=== PATIENT | male | born 1995 | race Two or more races ===

== ENCOUNTER 2024-05-02 13:25 | Inpatient (IN) | payer MEDICAID, OTHER ==
[~2024-05-02] VITALS: Ht 172.7 cm; Wt 127.0 kg
[2024-05-02 13:53] VITALS: PULSE 77; RESP 20; O2SAT 95
[2024-05-02] MEDS: MORPHINE SULFATE 4 MG/ML SYR/VIAL IV ONE (14:14)
[2024-05-02] MEDS: ONDANSETRON HCL 4 MG/2 ML VIAL IV ONE (14:14)
[2024-05-02] MEDS: SODIUM CHLORIDE 0.9% 1,000 ML IV ONE (14:14)
[2024-05-02] MEDS: PANTOPRAZOLE 40 MG/10 ML VIAL INJ IV ONE (14:14)
[2024-05-02 14:15] LABS: Basophils # (auto) 0 10 ^3/uL (0-0.2); Basophils % (auto) 0.5 % (0.0-2.0); Eosinophils # (auto) 0.1 10 ^3/uL (0-0.8); Hematocrit 48.7 % (41.0-53.0); Hemoglobin 16.3 g/dL (13.5-17.5); Lymphocytes # (auto) 1.4 10 ^3/uL (0.4-5.4); Lymphocytes % (auto) 24.2 % (10.0-50.0); Mean Corpuscular Hemoglobin 30.3 pg (28.0-32.0); Mean Corpuscular Hgb Conc. 33.4 g/dL (32.0-36.0); Mean Corpuscular Volume 90.8 fL (80.0-100.0); Monocytes # (auto) 0.7 10 ^3/uL (0-1.3); Monocytes % (auto) 12.9 % (0.0-12.0); Neutrophils # (auto) 3.5 10 ^3/uL (1.6-8.6); Neutrophils % (auto) 60.4 % (37.0-80.0); Nucleated Red Blood Cells % 0.1 %; Platelet Count (auto) 192 10^3/uL (140-450); Red Blood Cells 5.37 10^6/uL (4.5-5.90); Red Cell Distribution Width 13.1 % (11.8-14.3); White Blood Cell 5.8 10^3/uL (4.4-10.8)
[2024-05-02 14:16] LABS: Albumin 4.8 g/dL (3.2-4.8); Alkaline Phosphatase 103 U/L (46-116); Anion Gap 13 (5-15); Aspartate Aminotransferase 32 U/L (13-40); BUN/Creatinine Ratio 12.4 (10.0-20.0); Bilirubin, Total 0.5 mg/dL (0.2-1.0); Blood Urea Nitrogen 11 mg/dL (9-23); Calcium 9.8 mg/dL (8.7-10.4); Chloride 106 mmol/L (98-107); Potassium 3.5 mmol/L (3.5-5.1); Total Protein 7.9 g/dL (5.7-8.2)
[2024-05-02 14:27] LABS: Alanine Aminotransferase 53 U/L (7-40); Carbon Dioxide 17 mmol/L (20-31); Glucose 174 mg/dL (74-106); Sodium 136 mmol/L (136-145)
--- NOTE | 2024-05-02 14:27 | DVH ---
CT ABDOMEN AND PELVIS WITHOUT CONTRAST CLINICAL HISTORY: L abd pain TECHNIQUE: Multiple contiguous axial images of the abdomen and pelvis without intravenous contrast. T he images were reformatted degenerate coronal and sagittal reconstructions. All CT scans at this medical facility are performed using dose modulation techniques as appropriate t o a performed exam including the following:Automated exposure control was utilized; adjustment of the MA and/or KV according to patient size; and use of iterative reconstruction technique. Radiation Dose Information: CT Dose: CTDI volume is 25.55 mGy. Dose-length product is 1452.99 mGy*cm Comparison: None FINDINGS: Evaluation of the abdomen and pelvis is limited without intravenous contrast. There is diffuse fatty infiltration of the liver. There is a 6 mm calcified gallstone in the gallblad genny neck.. The pancreas, kidneys, adrenal glands, and spleen appear within normal limits. There is no gross evidence of abdominal lymphadenopathy. There is no free fluid or free air. The stomach grossly appears unremarkable. The small and large bowel loops demonstrate normal caliber and appear within normal limits.. A normal appearing appendix is seen in the right lower quadrant a bdomen. The abdominal aorta and IVC appear within normal limits. The bladder appears unremarkable for the degree of distention. Pelvic organ appears within normal carroll its. There is no gross evidence of a pelvic mass. There is no free fluid collection. Lung bases are clear. There is no acute osseous abnormality. IMPRESSION: 1. There is no acute process in the abdomen and pelvis. 2. Hepatic steatosis. 3. 6 mm calcified gallstone in the gallbladder neck. HS:Y
--- NOTE | 2024-05-02 16:29 | ED.PDOC ---
GI ASSESSMENT HPI Comments 29-year-old male with a history of PUD brought in by family for evaluation of left upper quadrant pain radiating to the epigastrium and right upper quadrant, intermittently for the past year, worse since this morning. Patient states he was seen by GI in June of 2023, underwent EGD and biopsy. He was told he had holes in his stomach, was prescribed 14 day course of pantoprazole which did not improve the symptoms at all. This episode he states is severe, sharp, constant, no particular alleviating factors, worse with palpation of his abdomen. He denies any fever, vomiting, diarrhea or dysuria. He has had some constipation. Chief Complaint: Abdominal Pain Time Seen by MD: 13:44 Allergies: Coded Allergies: NO KNOWN ALLERGIES (Unverified , 05/02/24) Mode of Arrival: EMS Past Medical History Past Medical History (Other): PUD Surgical History (Other): EGD Family History Family History: Reviewed,noncontributory to illness Social History Smoker: Non-Smoker Alcohol: Denies ETOH Use Drugs: Marijuana Lives In: Home All Other Systems: Reviewed and Negative (Comprehensive systems review obtained and negative except for what is stated in the HPI.) Physical Exam General Appearance: Moderate Distress, Obese HEENT: PERRL/EOMI Neck: Full Range of Motion, Normal Inspection Respiratory: Lungs Clear, No Accessory Muscle Use, No Respiratory Distress, Normal Breath Sounds Cardiovascular: No Edema, No JVD, Regular Rate/Rhythm Breast Exam: Deferred Gastrointestinal: Epigastric, LUQ, RUQ, Soft, Tenderness Genitalia: Deferred Pelvic: Deferred Rectal: Deferred Extremities: Normal inspection, Normal range of motion, Non-tender, No pedal edema Neurologic: Alert (Oriented x4), Normal Affect, Normal Mood, Other (Ambulatory. No gross focal deficit.) Cerebellar Function: NOT DONE Reflexes: NOT DONE Skin: Dry, Normal Color, Warm Lymphatic: NOT DONE Was a procedure done? Was a procedure done?: No GI differential Dx Differential Diagnosis: Bowel Obstruction, Cholangitis, Cholecystitis, Constipation, Diverticular disease, Esophagitis, Gastritis/PUD, Gastroenteritis, Inflammatory BD, Ischemic Bowel, Pancreatitis, UTI, Dehydration, Diabetes/ DKA, Electrolyte Imbalance, Food Poisoning, Bacterial, Viral, Stress Ulcer X-Ray, Labs, Meds, VS Vital Signs Date Time Temp Pulse Resp B/P (MAP) Pulse Ox O2 Delivery O2 Flow Rate FiO2 05/02/24 16:41 79 17 136/78 05/02/24 14:14 77 20 149/82 05/02/24 13:53 98.0 77 20 149/82 (104) 95 98.0 05/02/24 13:53 77 20 95 Room Air* 0 21 05/02/24 13:48 97.9 89 20 145/90 (108) 98 Lab Test 05/02/24 13:48 Range/Units White Blood Count 5.8 4.4-10.8 10^3/uL Red Blood Count 5.37 4.5-5.90 10^6/uL Hemoglobin 16.3 13.5-17.5 g/dL Hematocrit 48.7 41.0-53.0 % Mean Corpuscular Volume 90.8 80.0-100.0 fL Mean Corpuscular Hemoglobin 30.3 28.0-32.0 pg Mean Corpuscular Hemoglobin Concent 33.4 32.0-36.0 g/dL Red Cell Distribution Width 13.1 11.8-14.3 % Platelet Count 192 140-450 10^3/uL Mean Platelet Volume 8.6 6.9-10.8 fL Neutrophils (%) (Auto) 60.4 37.0-80.0 % Lymphocytes (%) (Auto) 24.2 10.0-50.0 % Monocytes (%) (Auto) 12.9 H 0.0-12.0 % Eosinophils (%) (Auto) 2.0 0.0-7.0 % Basophils (%) (Auto) 0.5 0.0-2.0 % Neutrophils # (Auto) 3.5 1.6-8.6 10 ^3/uL Lymphocytes # (Auto) 1.4 0.4-5.4 10 ^3/uL Monocytes # (Auto) 0.7 0-1.3 10 ^3/uL Eosinophils # (Auto) 0.1 0-0.8 10 ^3/uL Basophils # (Auto) 0 0-0.2 10 ^3/uL Nucleated Red Blood Cells 0.1 % Sodium Level 136 136-145 mmol/L Potassium Level 3.5 3.5-5.1 mmol/L Chloride Level 106 98-107 mmol/L Carbon Dioxide Level 17 L 20-31 mmol/L Anion Gap 13 5-15 Blood Urea Nitrogen 11 9-23 mg/dL Creatinine 0.89 0.700-1.30 mg/dL Glomerular Filtration Rate Calc 120 >90 mL/min BUN/Creatinine Ratio 12.4 10.0-20.0 Serum Glucose 174 H 74-106 mg/dL Calcium Level 9.8 8.7-10.4 mg/dL Total Bilirubin 0.5 0.2-1.0 mg/dL Aspartate Amino Transferase (AST) 32 13-40 U/L Alanine Aminotransferase (ALT) 53 H 7-40 U/L Alkaline Phosphatase 103 46-116 U/L Total Protein 7.9 5.7-8.2 g/dL Albumin 4.8 3.2-4.8 g/dL Lipase 41 12-53 U/L Current Medications Medications (Trade) Dose Ordered Sig/Suzanne Route Start Time Stop Time Status Last Admin Sodium Chloride 1,000 ml @ 1,000 mls/hr Q1H ONCE IV 05/02/24 14:00 05/02/24 14:59 DC 05/02/24 14:14 Ondansetron HCl (Zofran) 4 mg ONCE ONCE IV 05/02/24 14:00 05/02/24 14:01 DC 05/02/24 14:14 Morphine Sulfate 4 mg ONCE ONCE IV 05/02/24 14:00 05/02/24 14:01 DC 05/02/24 14:14 Pantoprazole Sodium (Protonix) 40 mg ONCE ONCE IV 05/02/24 14:00 05/02/24 14:01 DC 05/02/24 14:14 PROCEDURE(s): ABPL - CT AB PEL WO CON-NO ORAL OR IV REASON: L abd pain ORDER NUMBER(s): [id number], ACCESSION NUMBER(s): [id number] CT ABDOMEN AND PELVIS WITHOUT CONTRAST CLINICAL HISTORY: L abd pain TECHNIQUE: Multiple contiguous axial images of the abdomen and pelvis without intravenous contrast. The images were reformatted degenerate coronal and sagittal reconstructions. All CT scans at this medical facility are performed using dose modulation techniques as appropriate to a performed exam including the following:Automated exposure control was utilized; adjustment of the MA and/or KV according to patient size; and use of iterative reconstruction technique. Radiation Dose Information: CT Dose: CTDI volume is 25.55 mGy. Dose-length product is 1452.99 mGy*cm Comparison: None FINDINGS: Evaluation of the abdomen and pelvis is limited without intravenous contrast. There is diffuse fatty infiltration of the liver. There is a 6 mm calcified gallstone in the gallbladder neck.. The pancreas, kidneys, adrenal glands, and spleen appear within normal limits. There is no gross evidence of abdominal lymphadenopathy. There is no free fluid or free air. The stomach grossly appears unremarkable. The small and large bowel loops demonstrate normal caliber and appear within normal limits.. A normal appearing appendix is seen in the right lower quadrant abdomen. The abdominal aorta and IVC appear within normal limits. The bladder appears unremarkable for the degree of distention. Pelvic organ appears within normal limits. There is no gross evidence of a pelvic mass. There is no free fluid collection. Lung bases are clear. There is no acute osseous abnormality. IMPRESSION: 1. There is no acute process in the abdomen and pelvis. 2. Hepatic steatosis. 3. 6 mm calcified gallstone in the gallbladder neck. [place] [address] Ph: [phone] DIAGNOSTIC IMAGING Diagnostic Imaging Report : [id number] Signed PATIENT: JUAN DIA ACCT: [id number] UNIT: [id number] : 1995 LOC: OVERFLOW ROOM / BED: [address] [place] [address] / A AGE / SEX: 29 / M ADM STATUS: ADM IN SERVICE [id number] ORDERING PHYSICIAN: KEVIN PABLO MD PROCEDURE(s): ABDL - ABDOMEN LIMITED REASON: assess for acute cholecystitis ORDER NUMBER(s): [id number], ACCESSION NUMBER(s): [id number] INDICATION: assess for acute cholecystitis TECHNIQUE: Multiple real-time sonographic images were obtained of the right upper quadrant. COMPARISON: Prior CT examination of today's date FINDINGS: 1. Prior CT examination 2. demonstrates fatty infiltrated 3. liver 4. there is a stone 5. in the distal 6. common bile duct 7. and 8. liver 9. is enlarged 10. at 11. 21 cm 12. in span. 13. In the 14. prior CT 15. examination the stone in the common bile 16. duct measures 17. 5 mm 18. in size 19. . 20. In the current study 21. liver is 22. echogenic 23. and heterogeneous suggesting fatty infiltration 24. measures 25. 19.2 cm 26. in span which is also 27. consistent with 28. hepatomegaly. 29. The 30. right kidney 31. has 32. normal corticomedullary 33. differentiation measures 12.6 34. cm 35. in length without 36. cyst stone or hydronephrosis. 37. Portal vein flow 38. is hepatopetal 39. . Common bile duct 40. measures 41. 4 mm in caliber 42. . 43. There appear 44. to be 2 adjacent stones 45. in the 46. dependent 47. portion 48. of the gallbladder 49. measuring approximately 3 mm 50. in size each. 51. The gallbladder 52. wall 53. measures 1.3 mm which is normal. 54. May be 55. sludge 56. in the gallbladder. IMPRESSION: 1. Enlarged fatty infiltrated liver. Gallstones and possible sludge seen in the gallbladder. ATED BY: MALACHI KEE MD DICTATED DATE/TIME: 05/02/241830 SIGNED BY: MALACHI KEE MD SIGNED DATE/TIME: 05/02/241830 CC: X-Ray, Labs, Meds, VS Comment 29-year-old male with a history of peptic ulcer disease brought in by family complaining of severe left upper quadrant pain radiating to the epigastrium and right upper quadrant Vitals remarkable for BP 145/90 Exam remarkable for left upper quadrant, epigastric and right upper quadrant tenderness to percussion and palpation Rhythm strip independently interpreted by me: Sinus rhythm, rate 89, no ectopy. CT abdomen and pelvis: IMPRESSION: 1. There is no acute process in the abdomen and pelvis. 2. Hepatic steatosis. 3. 6 mm calcified gallstone in the gallbladder neck. CBC unremarkable, metabolic panel remarkable for CO2 17, glucose 174, ALT 53, lipase normal, UA pending Patient treated with the following in the ED: 1 L 0.9 normal saline IV bolus, morphine 4 mg IV, Zofran 4 mg IV, fentanyl 12.5 mcg IV On re-evaluation after IV morphine, patient stated pain was somewhat improved but still present. Repeat abdominal exam still revealed tenderness in the epigastrium and bilateral upper quadrants. IV fentanyl was ordered. Plan is to admit the patient for pain control and GI evaluation. Time of 1ST Reevaluation: 16:28 Reevaluation 1ST: Improved Patient Education/Counseling: Diagnosis, Treatment, Need For Follow Up Family Education/Counseling: Diagnosis, Treatment, Need For Follow Up Departure 1 Departure Time of Disposition: 14:28 Impression: Primary Impression: Upper abdominal pain Additional Impression: Cholelithiasis Qualified Codes: K80.20 - Calculus of gallbladder without cholecystitis without obstruction Disposition: ADMITTED INPATIENT Admit to: Med Surg Condition: Guarded Critical Care Note Critical Care Time?: No Stability Stability form required: No Heart Score Heart Score: Heart Score Response (Comments) Value History N/A 0 EKG N/A 0 Age N/A 0 Risk Factors N/A 0 Troponin N/A 0 Total 0 I personally scribed for CHLOE CARY MD ([facility]) on 05/02/24 at 18:47. Electronically submitted by Frankie Cabrera ([facility]). CHLOE CARY MD May 02, 2024 16:29
[2024-05-02] MEDS ORDERED: ONDANSETRON HCL 4 MG/2 ML VIAL IV PRN (17:45)
[2024-05-02] MEDS ORDERED: ACETAMINOPHEN 325 MG TAB PO PRN (17:45)
[2024-05-02] MEDS ORDERED: DOCUSATE SOD 100 MG CAP PO PRN (17:45)
--- NOTE | 2024-05-02 17:50 | DVHHP2 ---
Admitting Diagnosis: Abdominal pain History of Present Illness 29-year-old male with a history of PUD brought in by family for evaluation of left upper quadrant pain radiating to the epigastrium and right upper quadrant, intermittently for the past year, worse since this morning. Patient states he was seen by GI in June of 2023, underwent EGD and biopsy. He was told he had holes in his stomach, was prescribed 14 day course of pantoprazole which did not improve the symptoms at all. This episode he states is severe, sharp, constant, no particular alleviating factors, worse with palpation of his abdomen. He denies any fever, vomiting, diarrhea or dysuria. He has had some constipation. Past Medical History (Other): PUD Surgical History (Other): EGD Family History: Reviewed,noncontributory to illness Social History Smoker: Non-Smoker Alcohol: Denies ETOH Use Drugs: Marijuana Lives In: Home Allergies: Coded Allergies: NO KNOWN ALLERGIES (Unverified , 05/02/24) Vital Signs Vital Signs Date Time Temp Pulse Resp B/P (MAP) Pulse Ox O2 Delivery O2 Flow Rate FiO2 05/02/24 16:41 79 17 136/78 05/02/24 13:53 98.0 95 98.0 05/02/24 13:53 Room Air* 0 21 Physical Exam 30 years old male, overweight, sitting on chair. Mild distress HEENT-atraumatic normocephalic Heart-regular rate and rhythm Lungs clear to auscultate bilaterally Abdomen soft, tender to palpate right upper quadrant, nondistended Musculoskeletal-no edema cyanosis Neuro-AO x3, no focal deficit Results Labs Test 05/02/24 13:48 Range/Units White Blood Count 5.8 4.4-10.8 10^3/uL Red Blood Count 5.37 4.5-5.90 10^6/uL Hemoglobin 16.3 13.5-17.5 g/dL Hematocrit 48.7 41.0-53.0 % Mean Corpuscular Volume 90.8 80.0-100.0 fL Mean Corpuscular Hemoglobin 30.3 28.0-32.0 pg Mean Corpuscular Hemoglobin Concent 33.4 32.0-36.0 g/dL Red Cell Distribution Width 13.1 11.8-14.3 % Platelet Count 192 140-450 10^3/uL Mean Platelet Volume 8.6 6.9-10.8 fL Neutrophils (%) (Auto) 60.4 37.0-80.0 % Lymphocytes (%) (Auto) 24.2 10.0-50.0 % Monocytes (%) (Auto) 12.9 H 0.0-12.0 % Eosinophils (%) (Auto) 2.0 0.0-7.0 % Basophils (%) (Auto) 0.5 0.0-2.0 % Neutrophils # (Auto) 3.5 1.6-8.6 10 ^3/uL Lymphocytes # (Auto) 1.4 0.4-5.4 10 ^3/uL Monocytes # (Auto) 0.7 0-1.3 10 ^3/uL Eosinophils # (Auto) 0.1 0-0.8 10 ^3/uL Basophils # (Auto) 0 0-0.2 10 ^3/uL Nucleated Red Blood Cells 0.1 % Sodium Level 136 136-145 mmol/L Potassium Level 3.5 3.5-5.1 mmol/L Chloride Level 106 98-107 mmol/L Carbon Dioxide Level 17 L 20-31 mmol/L Anion Gap 13 5-15 Blood Urea Nitrogen 11 9-23 mg/dL Creatinine 0.89 0.700-1.30 mg/dL Glomerular Filtration Rate Calc 120 >90 mL/min BUN/Creatinine Ratio 12.4 10.0-20.0 Serum Glucose 174 H 74-106 mg/dL Calcium Level 9.8 8.7-10.4 mg/dL Total Bilirubin 0.5 0.2-1.0 mg/dL Aspartate Amino Transferase (AST) 32 13-40 U/L Alanine Aminotransferase (ALT) 53 H 7-40 U/L Alkaline Phosphatase 103 46-116 U/L Total Protein 7.9 5.7-8.2 g/dL Albumin 4.8 3.2-4.8 g/dL Lipase 41 12-53 U/L Primary Diagnosis Calcified gallstone Cholelithiasis rule out cholecystitis Plan CT abdomen and pelvis shows calcified goal stone gallbladder neck. Ultrasound of right upper quadrant to assess for acute cholecystitis IV fluids Pain control Bowel regimen Surgery consult for possible cholecystectomy Holding of antibiotics in view of no fever chills, level WBC Full code Regular diet. NPO midnight PPI for GI prophylaxis SCD for DVT prophylax Plan discussed with: Patient Date of Service: May 02, 2024 Billing Provider: KEVIN PABLO MD Common Visit Codes: 16119-CSLUANN INP/OBS CARE (MOD) KEVIN PABLO MD May 02, 2024 17:49
--- NOTE | 2024-05-02 18:33 | DVH ---
INDICATION: assess for acute cholecystitis TECHNIQUE: Multiple real-time sonographic images were obtained of the right upper quadrant. COMPARISON: Prior CT examination of today's date FINDINGS: 1. Prior CT examination 2. demonstrates fatty infiltrated 3. liver 4. there is a stone 5. in the distal 6. common bile duct 7. and 8. liver 9. is enlarged 10. at 11. 21 cm 12. in span. 13. In the 14. prior CT 15. examination the stone in the common bile 16. duct measures 17. 5 mm 18. in size 19. . 20. In the current study 21. liver is 22. echogenic 23. and heterogeneous suggesting fatty infiltration 24. measures 25. 19.2 cm 26. in span which is also 27. consistent with 28. hepatomegaly. 29. The 30. right kidney 31. has 32. normal corticomedullary 33. differentiation measures 12.6 34. cm 35. in length without 36. cyst stone or hydronephrosis. 37. Portal vein flow 38. is hepatopetal 39. . Common bile duct 40. measures 41. 4 mm in caliber 42. . 43. There appear 44. to be 2 adjacent stones 45. in the 46. dependent 47. portion 48. of the gallbladder 49. measuring approximately 3 mm 50. in size each. 51. The gallbladder 52. wall 53. measures 1.3 mm which is normal. 54. May be 55. sludge 56. in the gallbladder. IMPRESSION: 1. Enlarged fatty infiltrated liver. Gallstones and possible sludge seen in the gallbladder.
[2024-05-02] MEDS: MORPHINE SULFATE INJ 2 MG/ml SYRG IV PRN (18:36)
[2024-05-02] MEDS: fentaNYL CITRATE 100 MCG/2 ML VL IV ONE (18:37)
[2024-05-02 19:03] LABS: INR 1.01 (0.9-1.15); Prothrombin Time 10.7 sec (9.3-11.8)
[2024-05-02 19:07] VITALS: BP 139/69; PULSE 67; RESP 18; TEMP 98.4; O2SAT 97
[2024-05-02] MEDS: LACTATED RINGER'S 1,000 ML IV ONE (19:29)
[2024-05-02] MEDS: HYDROcodone-ACET 5/325MG TAB PO PRN (21:35)
[2024-05-02] MEDS: SODIUM CHLOR 0.9% PF (SALINE LOCK) 10ML VIAL/SYR IV SCH (21:46)
[2024-05-02 22:10] VITALS: BP 127/61; PULSE 66; RESP 18; TEMP 97.8; O2SAT 97
[2024-05-03] VITALS (9 sets, daily range): BP systolic 97–134; BP diastolic 76–93; PULSE 64–80; RESP 16–20; TEMP 98–98.6; O2SAT 96–98
[2024-05-03] MEDS ORDERED: LACTATED RINGER'S 1,000 ML IV ONE (06:00)
[2024-05-03 06:57] LABS: Basophils # (auto) 0 10 ^3/uL (0-0.2); Basophils % (auto) 0.7 % (0.0-2.0); Eosinophils # (auto) 0.2 10 ^3/uL (0-0.8); Eosinophils % (auto) 4.8 % (0.0-7.0); Hematocrit 45.9 % (41.0-53.0); Hemoglobin 15.5 g/dL (13.5-17.5); Lymphocytes # (auto) 1.6 10 ^3/uL (0.4-5.4); Lymphocytes % (auto) 40.1 % (10.0-50.0); Mean Corpuscular Hemoglobin 30.3 pg (28.0-32.0); Mean Corpuscular Hgb Conc. 33.7 g/dL (32.0-36.0); Monocytes # (auto) 0.6 10 ^3/uL (0-1.3); Monocytes % (auto) 14.9 % (0.0-12.0); Neutrophils # (auto) 1.5 10 ^3/uL (1.6-8.6); Neutrophils % (auto) 39.5 % (37.0-80.0); Nucleated Red Blood Cells % 0.2 %; Platelet Count (auto) 179 10^3/uL (140-450); Red Cell Distribution Width 13.1 % (11.8-14.3); White Blood Cell 3.9 10^3/uL (4.4-10.8)
[2024-05-03 07:04] LABS: Alkaline Phosphatase 107 U/L (46-116); Anion Gap 10 (5-15); BUN/Creatinine Ratio 11.7 (10.0-20.0); Blood Urea Nitrogen 11 mg/dL (9-23); Calcium 9.5 mg/dL (8.7-10.4); Carbon Dioxide 25 mmol/L (20-31); Chloride 104 mmol/L (98-107); Glucose 105 mg/dL (74-106); Potassium 3.8 mmol/L (3.5-5.1); Sodium 139 mmol/L (136-145); Total Protein 7.6 g/dL (5.7-8.2)
[2024-05-03 07:05] LABS: Albumin 4.6 g/dL (3.2-4.8); Bilirubin, Total 0.5 mg/dL (0.2-1.0)
[2024-05-03 07:06] LABS: Alanine Aminotransferase 83 U/L (7-40); Aspartate Aminotransferase 50 U/L (13-40)
[2024-05-03] MEDS: PANTOPRAZOLE 40 MG/10 ML VIAL INJ IV SCH ×2 (09:14→21:52)
--- NOTE | 2024-05-03 09:31 | DVHINCON2 ---
Date of service: May 03, 2024 Reason for Consultation cholelithiasis History of Present Illness History Source: Patient, MD Notes Exam Limitations: No limitations HPI 29 year old male with complaint of epigastric and right upper quadrant pain for the past year. Patient states he has been by several doctors which told him possible cancer , holes in his stomach, and was placed on medication. He has right upper quadrant pain with radiation to his back after meals. Positive Foley sign on exam this morning. Chief Complaint of Abdominal/F: Abdominal pain Location of Abdominal Onset: RUQ, Epigastric Abdominal Pain Radiation: Back Past Medical History Cardiac: No pertinent Hx Pulmonary: No pertinent Hx Central Nervous System: No pertinent Hx GI: Peptic ulcer disease Hemotology/Oncology: No pertinent Hx Hepatobiliary: No pertinent Hx Psychiatric: No pertinent Hx Musculoskeletal: No pertinent Hx Rheumotologic: No pertinent Hx Infectious Disease: No peritnent Hx ENT: No pertinent Hx Renal/: No pertinent Hx Endocrine: No pertinent Hx Dermatology: No pertinent Hx Others EGD Family History: No pertinent Hx Patient Family History: Diabetes during G8 MOTHER G8 FATHER Hypertension G8 MOTHER G8 FATHER Smoker: No Hx (Negative) Alocohol: None Drugs: Marijuana Review of Systems Constitutional: No symptom reported Ears, Nose, & Throat: No symptom reported Eyes: No symptom reported Pulmonary/Respiratory: No symptom reported Cardiovascular: No symptom reported Gastrointestinal: Abdominal Pain Genitourinary: No symptom reported Musculoskeletal: No symptom reported Skin: No symptom reported Psychiatric: No symptom reported Endocrine: No symptom reported Hemotologic/Lymphatic: No symptom reported H&P Exam Vital Signs Vital Signs Date Time Temp Pulse Resp B/P (MAP) Pulse Ox O2 Delivery O2 Flow Rate FiO2 05/03/24 05:17 61 14 144/75 05/03/24 01:00 98.6 98 98.6 05/02/24 18:52 Room Air* 0 21 General Appeara: Well developed, Well nourished, Normal Appearance Head Exam: Normal inspection Neck Exam: Normal inspection Eye Exam: bilateral eye Normal inspection Pulmonary/Respiratory: Normal inspection, Normal breath sounds Cardiovascular/Chest: Normal inspection, Regular rate, Normal Rhythm Abdominal Exam: Normal bowel sounds, Soft, Other (positive foley sign) FLIGHT FOLLOWER Exam: Normal hearing, Normal speech, PERRL Neuro/Mental St: Alert, Oriented Appearance: Appropriate appearance Eye contact/ Speech: Cooperative, Good eye contact, Normal speech Thoughts/Psych: Normal thought pattern Skin Exam: Normal inspection Labs/Xrays Labs Test 05/03/24 06:24 05/02/24 18:28 05/02/24 13:48 Range/Units White Blood Count 3.9 #L 4.4-10.8 10^3/uL Red Blood Count 5.10 4.5-5.90 10^6/uL Hemoglobin 15.5 13.5-17.5 g/dL Hematocrit 45.9 41.0-53.0 % Mean Corpuscular Volume 90.0 80.0-100.0 fL Mean Corpuscular Hemoglobin 30.3 28.0-32.0 pg Mean Corpuscular Hemoglobin Concent 33.7 32.0-36.0 g/dL Red Cell Distribution Width 13.1 11.8-14.3 % Platelet Count 179 140-450 10^3/uL Mean Platelet Volume 8.4 6.9-10.8 fL Neutrophils (%) (Auto) 39.5 37.0-80.0 % Lymphocytes (%) (Auto) 40.1 10.0-50.0 % Monocytes (%) (Auto) 14.9 H 0.0-12.0 % Eosinophils (%) (Auto) 4.8 0.0-7.0 % Basophils (%) (Auto) 0.7 0.0-2.0 % Neutrophils # (Auto) 1.5 L 1.6-8.6 10 ^3/uL Lymphocytes # (Auto) 1.6 0.4-5.4 10 ^3/uL Monocytes # (Auto) 0.6 0-1.3 10 ^3/uL Eosinophils # (Auto) 0.2 0-0.8 10 ^3/uL Basophils # (Auto) 0 0-0.2 10 ^3/uL Nucleated Red Blood Cells 0.2 % Sodium Level 139 136-145 mmol/L Potassium Level 3.8 3.5-5.1 mmol/L Chloride Level 104 98-107 mmol/L Carbon Dioxide Level 25 20-31 mmol/L Anion Gap 10 5-15 Blood Urea Nitrogen 11 9-23 mg/dL Creatinine 0.94 0.700-1.30 mg/dL Glomerular Filtration Rate Calc 113 >90 mL/min BUN/Creatinine Ratio 11.7 10.0-20.0 Serum Glucose 105 74-106 mg/dL Calcium Level 9.5 8.7-10.4 mg/dL Total Bilirubin 0.5 0.2-1.0 mg/dL Aspartate Amino Transferase (AST) 50 H 13-40 U/L Alanine Aminotransferase (ALT) 83 H 7-40 U/L Alkaline Phosphatase 107 46-116 U/L Total Protein 7.6 5.7-8.2 g/dL Albumin 4.6 3.2-4.8 g/dL Prothrombin Time 10.7 9.3-11.8 sec Prothrombin Time INR 1.01 0.9-1.15 Lipase 41 12-53 U/L Assessment/Plan Problem List: (1) Cholelithiasis Plan patient complaint of abdominal pain for the past year , seen by several doctors and no improvement. Patient states epigastric pain with radiation to his back after meals RUQ tender to palpation , positive Foley sign denies nausea or vomiting pain still present Plan: continue IV hydration NPO Dr. Lopez notified Plan discussed with: Patient Visit Coding Surgery Date of Service if different f: May 03, 2024 Billing Provider: SYDNEY SILVA MD Surgery Visit Codes: [id number] - INP CONSULT <80 MIN ROXANNE DIA [facility] May 03, 2024 09:31
--- NOTE | 2024-05-03 11:14 | DVHINCON2 ---
Date of service: May 03, 2024 History of Present Illness 29-year-old otherwise healthy male complaining of one day history of recurrent right upper quadrant epigastric abdominal pain without fevers, chills, nausea or vomiting. Past Medical History None. However last year patient was worked up for possible lymphoma at [facility] however it was negative per patient Past Surgical History Left elbow surgery but denies any abdominal surgeries Family History: Diabetes during G8 MOTHER G8 FATHER Hypertension G8 MOTHER G8 FATHER Family History Noncontributory Social History Reports tobacco and alcohol. Denies any IV drug use. Allergies: Coded Allergies: NO KNOWN ALLERGIES (Unverified , 05/02/24) Current Medications Current Medications Medications (Trade) Dose Ordered Sig/Suzanne Route PRN Reason Start Time Stop Time Status Last Admin Sodium Chloride (Saline Lock Ns) 10 ml Q8HR IV 05/02/24 22:00 05/02/24 21:46 Docusate Sodium (Colace Capsule) 100 mg BIDPRN PRN PO FOR CONSTIPATION 05/02/24 17:45 05/03/24 10:27 DC Acetaminophen (Tylenol Tablet) 650 mg Q6HP PRN PO PAIN SCALE 1-3 OR TEMP>100.4 05/02/24 17:45 Acetaminophen/ Hydrocodone Bitart ([place] 5/325MG Tab) 1 tab Q4HP PRN PO MODERATE PAIN (4-6 PAIN SCALE) 05/02/24 17:45 05/02/24 21:35 Ondansetron HCl (Zofran) 4 mg Q4HP PRN IV NAUSEA / VOMITING 05/02/24 17:45 Morphine Sulfate 2 mg Q4HPRN PRN IV SEVERE PAIN (7-10 PAIN SCALE) 05/02/24 17:45 05/03/24 05:17 Pantoprazole Sodium (Protonix) 40 mg DAILY IV 05/03/24 10:00 05/03/24 10:27 DC 05/03/24 09:14 Pantoprazole Sodium (Protonix) 40 mg BID IV 05/03/24 22:00 UNV Vital Signs Vital Signs Date Time Temp Pulse Resp B/P (MAP) Pulse Ox O2 Delivery O2 Flow Rate FiO2 05/03/24 08:15 98.3 67 19 129/90 (103) 96 98.3 05/03/24 08:00 Room Air* 0 21 Physical Exam GEN: Age-appropriate male in no acute distress. Alert. HEENT: Normocephalic atraumatic. Moist mucous membranes. Anicteric sclerae. CV: RRR Respiratory: CTAB ABD: Minimal right upper quadrant epigastric tenderness to palpation with minimal local guarding. Nondistended. Abdominal ultrasound: Cholelithiasis with normal common bile duct. Labs/Diagnostic Data Labs Test 05/03/24 06:24 05/02/24 18:28 05/02/24 13:48 Range/Units White Blood Count 3.9 #L 4.4-10.8 10^3/uL Red Blood Count 5.10 4.5-5.90 10^6/uL Hemoglobin 15.5 13.5-17.5 g/dL Hematocrit 45.9 41.0-53.0 % Mean Corpuscular Volume 90.0 80.0-100.0 fL Mean Corpuscular Hemoglobin 30.3 28.0-32.0 pg Mean Corpuscular Hemoglobin Concent 33.7 32.0-36.0 g/dL Red Cell Distribution Width 13.1 11.8-14.3 % Platelet Count 179 140-450 10^3/uL Mean Platelet Volume 8.4 6.9-10.8 fL Neutrophils (%) (Auto) 39.5 37.0-80.0 % Lymphocytes (%) (Auto) 40.1 10.0-50.0 % Monocytes (%) (Auto) 14.9 H 0.0-12.0 % Eosinophils (%) (Auto) 4.8 0.0-7.0 % Basophils (%) (Auto) 0.7 0.0-2.0 % Neutrophils # (Auto) 1.5 L 1.6-8.6 10 ^3/uL Lymphocytes # (Auto) 1.6 0.4-5.4 10 ^3/uL Monocytes # (Auto) 0.6 0-1.3 10 ^3/uL Eosinophils # (Auto) 0.2 0-0.8 10 ^3/uL Basophils # (Auto) 0 0-0.2 10 ^3/uL Nucleated Red Blood Cells 0.2 % Sodium Level 139 136-145 mmol/L Potassium Level 3.8 3.5-5.1 mmol/L Chloride Level 104 98-107 mmol/L Carbon Dioxide Level 25 20-31 mmol/L Anion Gap 10 5-15 Blood Urea Nitrogen 11 9-23 mg/dL Creatinine 0.94 0.700-1.30 mg/dL Glomerular Filtration Rate Calc 113 >90 mL/min BUN/Creatinine Ratio 11.7 10.0-20.0 Serum Glucose 105 74-106 mg/dL Calcium Level 9.5 8.7-10.4 mg/dL Total Bilirubin 0.5 0.2-1.0 mg/dL Aspartate Amino Transferase (AST) 50 H 13-40 U/L Alanine Aminotransferase (ALT) 83 H 7-40 U/L Alkaline Phosphatase 107 46-116 U/L Total Protein 7.6 5.7-8.2 g/dL Albumin 4.6 3.2-4.8 g/dL Prothrombin Time 10.7 9.3-11.8 sec Prothrombin Time INR 1.01 0.9-1.15 Lipase 41 12-53 U/L Assessment 1. Cholecystitis Plan/Recommendation 1. Laparoscopic cholecystectomy possible open surgery Informed consent: The surgery and its risks including but not limited to infection, bleeding requiring possible blood transfusion with the risk of hepatitis or HIV infection, possible open surgery, possible cystic duct leak or retained common bile duct stone requiring further intervention such as an ERCP were explained to the patient and his family including and mother. All questions were answered to their satisfaction. The patient expressed verbal understanding and wished to proceed with the surgery. Plan discussed with: Patient, Spouse MICHAEL CHAVEZ MD May 03, 2024 11:14
[2024-05-03] MEDS ORDERED: SODIUM CHLORIDE LOCK 20 ML ONE (11:26)
[2024-05-03] MEDS ORDERED: KETAMINE 50mg/ML 1ml syringe ONE (11:26)
[2024-05-03] MEDS ORDERED: MIDAZOLAM HCL 2MG/2ML 2ml VIAL (1mg/ml) ONE (11:26)
[2024-05-03] MEDS ORDERED: LIDOCAINE 1% INJ PF 5ML AMP ONE (11:26)
[2024-05-03] MEDS ORDERED: fentaNYL CITRATE 100 MCG/2 ML VL ONE (11:26)
[2024-05-03] MEDS ORDERED: PROPOFOL 10 MG/ML 20 ML IV ONE (11:26)
[2024-05-03] MEDS ORDERED: ONDANSETRON HCL 4 MG/2 ML VIAL ONE (11:26)
[2024-05-03] MEDS ORDERED: LIDOCAINE HCL 2% TOP JELLY 5ML TOP ONE (11:26)
[2024-05-03] MEDS ORDERED: MEPERIDINE HCL (50 MG/ML) 1 ML VIAL ONE (11:30)
[2024-05-03] MEDS ORDERED: SUGAMMADEX 200mg/2ml Vial (100MG/ML) IV ONE (12:04)
[2024-05-03] MEDS: LIDOCAINE W/ EPINEPHRINE 1% 20ML VIAL ONE (13:04)
[2024-05-03] MEDS ORDERED: HYDROmorphone HCL 2 MG/ML VL/or syr IV PRN (13:45)
[2024-05-03] MEDS ORDERED: MORPHINE SULFATE 4 MG/ML SYR/VIAL IV PRN (13:45)
[2024-05-03] MEDS ORDERED: MORPHINE SULFATE INJ 2 MG/ml SYRG IV PRN (13:45)
--- NOTE | 2024-05-03 13:49 | DVHOP2 ---
Operative Report - 2 Report Details Date: 05/03/24 Preop Diagnosis: 1. Cholecystitis Postop Diagnosis: 1. Same Surgeon: Michael Lopez MD Sewage Plant Supervisor: JOSUÉ Espino Anesthesiologist: Dr. Caputo Anesthesia: General, Local Consent: The surgery and its risks including but not limited to infection, bleeding requ iring possible blood transfusion with the risk of hepatitis or HIV infection, possible open surgery, possible cystic duct leak or retained common bile duct stone requiring further intervention such as an ERCP were explained to the patient and his family. All questions were answered to their satisfaction. The patient expressed verbal understanding and wished to proceed with the surgery. Complications: none Estimated Blood Loss: 30 mL Fluids: 600 mL Name of Procedure Performed Laparoscopic cholecystectomy Procedure Details Procedure Details: After induction of general anesthesia, patient's abdomen was prepped and draped in standard surgical fashion. A small infraumbilical incision was made and this incision was taken through the abdominal wall down to the fascia which was opened sharply. Peritoneum was then bluntly divided gaining access to the intra-abdominal cavity. Interrupted 0 Vicryl sutures were placed through the fascial incision and using an open technique, Azael trocar was introduced and secured using the Vicryl sutures. Abdomen was insufflated to 15 mmHg and camera was inserted. Visual examination of the intestine under the fascial incision appeared normal without injury. Under direct visualization, a 5 mm bladeless trocar was placed in the subxiphoid region and two additional 5 mm bladeless trocars were placed in the right upper quadrant all under direct visualization. Examination of the right upper quadrant revealed slightly distended gallbladder which was grasped and retracted in a cephalad direction. Infundibulum was retracted laterally and careful blunt dissection was performed to identify the cystic duct which appeared normal in size. This was clipped and divided using Endoclips without complication. Cystic artery was located just next to the cystic duct and this was also clipped and divided using Endoclips without complication. Gallbladder was then removed from the liver bed using electrocautery. There was no bile or stone spillage during the maneuver. Gallbladder was then removed from the abdominal cavity using an endo pouch bag and sent off the surgical field. Abdomen was then re-insufflated and hemostasis in the liver bed was achieved using electrocautery. Right upper quadrant was then well irrigated until fluid was clear. Trocars were then removed under direct visualization as the abdomen was deflated. Additional interrupted 0 Vicryl sutures were placed through the infraumbilical fascial incision and the sutures were tied down closing off the infraumbilical fascia. Surgical sites were cleaned and dried dressings were applied. Sponge, needle, instrument count at the end of the case were reported to be correct by the nursing staff. The patient tolerated procedure well and was awake, extubated and transferred to recovery in stable condition. Specimen: Gallbladder Condition Stable Disposition Still a Patient MICHAEL LOPEZ MD May 03, 2024 13:49
[2024-05-03] MEDS: HYDROmorphone HCL 2 MG/ML VL/or syr IV PRN (14:08)
[2024-05-03] MEDS: ceFAZolin 2 GM/D5W100ml 100 ML IV ONE ×2 (14:08)
[2024-05-03] MEDS: LIDOCAINE 1%-Mpf/Epinephrine 1:200,000 30ml VIAL ONE (14:09)
[2024-05-03] MEDS: METOCLOPRAMIDE HCL 5MG/ml INJ 2ml VIAL IV ONE (14:09)
[2024-05-03] MEDS: KETOROLAC TROMETH 30 MG/ML 1ML VIAL IV ONE (14:26)
--- NOTE | 2024-05-03 14:39 | DVHPNRES ---
Progress Note Date Seen: May 03, 2024 Resident Creating Document: DEBBY BALBUENACAMDENAMY RESIDENT Medical Necessity Reason Pt with a Central, PICC or Fol: No Subjective Review of Systems Patient is a 29-year-old male with reported medical history of peptic ulcer/gastritis came to the ED with a chief complaint of severe abdominal pain for 1 day prior to admission. He reported that he has been having abdominal pain since the last 1 year which gets worsened following every meal. Feels pain in the epigastrium in the right of the quadrant which radiates down the right flank, no improvement with position, reports the pain goes down in 3-4 hours following meal. Patient denies nausea or vomiting. He reports that he was worked up by a plant safety engineer last year with the upper endoscopy and biopsy was taken was told that he had a peptic ulcer but the patient said the physician did not follow up and he also did not follow up. Patient reports the pain worsened yesterday which made him come to the hospital for further evaluation. Patient also reports of passing black stools very frequently about 3-4 times per week. Patient denied any weakness, blood in the vomitus, diarrhea, constipation, fever, chills. Past medical history: None Past surgical history: None Social history: Patient was with his partner and drinks 1-2 tall cans of beer every day and smokes about 2 joints every day, denies other illegal drug use Medications: None Review of systems Patient seen and examined at bedside and reported epigastrium and right upper quadrant pain Denies nausea or vomiting Denies constipation or diarrhea denies fever or chills Objective vital signs Vital Sign Date Time Temp Pulse Resp B/P (MAP) Pulse Ox O2 Delivery O2 Flow Rate FiO2 05/03/24 14:21 73 12 161/105 05/03/24 13:46 98 05/03/24 13:31 12.0 05/03/24 13:31 Mask 96 05/03/24 13:31 97.3 97.3 Total Intake and Output 05/02/24 05/02/24 05/03/24 15:00 23:00 07:00 Intake Total 300 ml Output Total 2 ml Balance 298 ml medications Current Medications Medications Dose Ordered Sig/Suzanne Route Start Time Stop Time Status Last Admin Dose Admin Sodium Chloride 10 ml Q8HR IV 05/02/24 22:00 05/03/24 14:10 10 ML Acetaminophen 650 mg Q6HP PRN PO 05/02/24 17:45 Acetaminophen/ Hydrocodone Bitart 1 tab Q4HP PRN PO 05/02/24 17:45 05/02/24 21:35 1 TAB Ondansetron HCl 4 mg Q4HP PRN IV 05/02/24 17:45 Morphine Sulfate 2 mg Q4HPRN PRN IV 05/02/24 17:45 05/03/24 05:17 2 MG Pantoprazole Sodium 40 mg BID IV 05/03/24 22:00 Morphine Sulfate 2 mg Q4H PRN IV 05/03/24 13:45 05/03/24 17:46 Morphine Sulfate 1 mg Q30M PRN IV 05/03/24 13:45 05/03/24 15:46 Examination Constitutional: Patient was alert and oriented time, place and person and appears to be in mild distress because of the abdominal pain Gen - no pallor, no icterus, no cyanosis, no clubbing, no LAD, no edema . Skin - Patients skin is warm and dry.. HEENT - normocephalic, atraumatic, moist mucous membranes. Neck - full ROM, no LAD, no JVD Pulmonary - B/L vesicular breath sounds. no crackles , no wheezing, no stridor. cardiovascular - normal S1,S2 heard. no murmurs heard. peripheral pulses normal radial 2+, pedal 2+. GI - soft abdomen with tenderness to palpation in the right upper quadrant and the epigastrium. Foley sign positive . no hepatospleenomegaly. Bowel sounds normoactive Neurological - Bilateral upper extremity strength 5/5, bilateral lower extremity strength 5/5, no facial droop, normal speech, no tremor, no sensory deficiets. laboratory and microbiology Laboratory Tests 05/03/24 06:24 Test 05/03/24 06:24 Range/Units Serum Glucose 105 74-106 mg/dL Problem List/Assessment/Plan Problem List/Assessment/Plan Assessment Acute intractable abdominal pain Cholelithiasis with suspicion for acute cholecystitis Acute gastritis Dyspepsia ? Peptic ulcer disease CT abdomen pelvis without contrast shows 1. There is no acute process in the abdomen and pelvis. 2. Hepatic steatosis. 3. 6 mm calcified gallstone in the gallbladder neck. Liver and gallbladder ultrasound showed 1. Enlarged fatty infiltrated liver. 2. Gallstones and possible sludge seen in the gallbladder. Plan - patient underwent laparoscopic cholecystectomy without any complication - patient is started on clear liquid diet with the dinner - pantoprazole 40 mg q.d. - Carafate 1 g b.i.d. - pain control with the IV morphine Goals of care discussed with the patient for over 25 minutes. Full code Plan discussed with Dr. Garrett Plan discussed with: Patient My Orders My Orders Orders - ANT BALBUENA Procedure Category Date Status Time Pantoprazole PHA 05/03/24 In Process (Protonix) 22:00 Date of Service: May 03, 2024 Billing Provider: MARQUISE GARCIA MD Common Visit Codes: [id number] INP/OBS CARE(HIGH) ANT BALBUENA May 03, 2024 14:39 MARQUISE GARCIA MD May 06, 2024 14:29 DEYSI GARRETT MD May 06, 2024 15:56
[2024-05-03] MEDS ORDERED: DOCUSATE SOD 100 MG CAP PO ONE (20:30)
[2024-05-03] MEDS: DOCUSATE SOD 100 MG CAP PO ONE (21:52)
[2024-05-03] MEDS: SUCRALFATE 1 GM/10 ML ORAL SUSP PO SCH (21:52)
[2024-05-04] VITALS (7 sets, daily range): BP systolic 122–143; BP diastolic 71–85; PULSE 62–76; RESP 17–20; TEMP 97.9–98.8; O2SAT 96–100
[2024-05-04 06:50] LABS: Basophils # (auto) 0 10 ^3/uL (0-0.2); Basophils % (auto) 0.6 % (0.0-2.0); Eosinophils # (auto) 0.2 10 ^3/uL (0-0.8); Hematocrit 42.6 % (41.0-53.0); Hemoglobin 14.7 g/dL (13.5-17.5); Lymphocytes # (auto) 1.5 10 ^3/uL (0.4-5.4); Lymphocytes % (auto) 26.3 % (10.0-50.0); Mean Corpuscular Hemoglobin 30.9 pg (28.0-32.0); Mean Corpuscular Hgb Conc. 34.4 g/dL (32.0-36.0); Monocytes # (auto) 0.5 10 ^3/uL (0-1.3); Monocytes % (auto) 9.1 % (0.0-12.0); Neutrophils # (auto) 3.5 10 ^3/uL (1.6-8.6); Nucleated Red Blood Cells % 0.1 %; Platelet Count (auto) 174 10^3/uL (140-450); Red Blood Cells 4.74 10^6/uL (4.5-5.90); Red Cell Distribution Width 13.2 % (11.8-14.3); White Blood Cell 5.8 10^3/uL (4.4-10.8)
[2024-05-04 07:17] LABS: Albumin 4.3 g/dL (3.2-4.8); Alkaline Phosphatase 102 U/L (46-116); Anion Gap 10 (5-15); BUN/Creatinine Ratio 14.6 (10.0-20.0); Bilirubin, Total 0.7 mg/dL (0.2-1.0); Blood Urea Nitrogen 12 mg/dL (9-23); Carbon Dioxide 25 mmol/L (20-31); Chloride 104 mmol/L (98-107); Glucose 86 mg/dL (74-106); Potassium 3.8 mmol/L (3.5-5.1); Sodium 139 mmol/L (136-145)
[2024-05-04 07:21] LABS: Alanine Aminotransferase 73 U/L (7-40); Aspartate Aminotransferase 46 U/L (13-40)
[2024-05-04] MEDS: DOCUSATE SOD 100 MG CAP PO SCH (09:45)
--- NOTE | 2024-05-04 13:39 | DVHPN2 ---
Progress Note - Dictate Date Seen: May 04, 2024 Medical Necessity Reason Pt with a Central, PICC or Fol: No Subjective E: no major events o/n. doing well. no complaints. vital signs Vital Sign Date Time Temp Pulse Resp B/P (MAP) Pulse Ox O2 Delivery O2 Flow Rate FiO2 05/04/24 08:30 98.0 74 19 129/71 (90) 96 98.0 05/04/24 08:00 Room Air* 0 21 Total Intake and Output 05/03/24 05/03/24 05/04/24 15:00 23:00 07:00 Intake Total 100 ml 720 ml 400 ml Output Total 425 ml Balance 100 ml 295 ml 400 ml medications Current Medications Medications Dose Ordered Sig/Suzanne Route Start Time Stop Time Status Last Admin Dose Admin Sodium Chloride 10 ml Q8HR IV 05/02/24 22:00 05/04/24 05:44 10 ML Acetaminophen 650 mg Q6HP PRN PO 05/02/24 17:45 Acetaminophen/ Hydrocodone Bitart 1 tab Q4HP PRN PO 05/02/24 17:45 05/04/24 03:30 1 TAB Ondansetron HCl 4 mg Q4HP PRN IV 05/02/24 17:45 Morphine Sulfate 2 mg Q4HPRN PRN IV 05/02/24 17:45 05/03/24 19:34 2 MG Pantoprazole Sodium 40 mg BID IV 05/03/24 22:00 05/04/24 09:45 40 MG Sucralfate 1 gm BID@0600,2200 PO 05/03/24 22:00 05/04/24 05:46 1 GM Docusate Sodium 100 mg BID PO 05/04/24 10:00 05/04/24 09:45 100 MG objective GEN: NAD ABD: surgical dressings clean and dry. laboratory and microbiology Laboratory Tests 05/04/24 04:44 Test 05/04/24 04:44 Range/Units Serum Glucose 86 74-106 mg/dL Assessment/Plan A: 1. s/p lap cholecystectomy doing well. P: 1. stable from surgery POV. 2. remove bandages tomorrow. ok to shower and get incisions wet tomorrow 3. f/u next week to clinic. call [phone] for appt on Mon. Dietary Evaluation Review Comments: 1.Continue clear liquid diet as appropriate 2.Advance to regular diet when medically appropriate Expected Outcomes/Goals: GI function improved, tolerating diet Plan discussed with: Patient MICHAEL CHAVEZ MD May 04, 2024 13:39
--- NOTE | 2024-05-04 14:53 | DVHDS2 ---
Discharge Summary Date of Admission May 02, 2024 at 17:43 Date of Discharge: May 04, 2024 Admitting Diagnosis Acute intractable abdominal pain Cholelithiasis with suspicion for acute cholecystitis Acute gastritis Dyspepsia ? Peptic ulcer disease Labs/Diagnostic Data: Laboratory Results Test 05/04/24 04:44 05/02/24 18:28 05/02/24 13:48 White Blood Count 5.8 10^3/uL (4.4-10.8) Red Blood Count 4.74 10^6/uL (4.5-5.90) Hemoglobin 14.7 g/dL (13.5-17.5) Hematocrit 42.6 % (41.0-53.0) Mean Corpuscular Volume 90.0 fL (80.0-100.0) Mean Corpuscular Hemoglobin 30.9 pg (28.0-32.0) Mean Corpuscular Hemoglobin Concent 34.4 g/dL (32.0-36.0) Red Cell Distribution Width 13.2 % (11.8-14.3) Platelet Count 174 10^3/uL (140-450) Mean Platelet Volume 8.7 fL (6.9-10.8) Neutrophils (%) (Auto) 61.0 % (37.0-80.0) Lymphocytes (%) (Auto) 26.3 % (10.0-50.0) Monocytes (%) (Auto) 9.1 % (0.0-12.0) Eosinophils (%) (Auto) 3.0 % (0.0-7.0) Basophils (%) (Auto) 0.6 % (0.0-2.0) Neutrophils # (Auto) 3.5 10 ^3/uL (1.6-8.6) Lymphocytes # (Auto) 1.5 10 ^3/uL (0.4-5.4) Monocytes # (Auto) 0.5 10 ^3/uL (0-1.3) Eosinophils # (Auto) 0.2 10 ^3/uL (0-0.8) Basophils # (Auto) 0 10 ^3/uL (0-0.2) Nucleated Red Blood Cells 0.1 % Sodium Level 139 mmol/L (136-145) Potassium Level 3.8 mmol/L (3.5-5.1) Chloride Level 104 mmol/L (98-107) Carbon Dioxide Level 25 mmol/L (20-31) Anion Gap 10 (5-15) Blood Urea Nitrogen 12 mg/dL (9-23) Creatinine 0.82 mg/dL (0.700-1.30) Glomerular Filtration Rate Calc 123 mL/min (>90) BUN/Creatinine Ratio 14.6 (10.0-20.0) Serum Glucose 86 mg/dL (74-106) Calcium Level 9.0 mg/dL (8.7-10.4) Total Bilirubin 0.7 mg/dL (0.2-1.0) Aspartate Amino Transferase (AST) 46 U/L (13-40) Alanine Aminotransferase (ALT) 73 U/L (7-40) Alkaline Phosphatase 102 U/L (46-116) Total Protein 7.0 g/dL (5.7-8.2) Albumin 4.3 g/dL (3.2-4.8) Prothrombin Time 10.7 sec (9.3-11.8) Prothrombin Time INR 1.01 (0.9-1.15) Lipase 41 U/L (12-53) Other Laboratory Tests 05/04/24 04:44 Brief Hx & Hospital Course: This is a 29 years old male with past medical history of peptic ulcer disease brought in by family member because of left upper quadrant abdominal pain radiating to the epigastric area and right upper quadrant. Per patient the pain is intermittent for one year. Worsened in the morning. The patient underwent EGD and biopsy in June 2023. The patient was told that he had "a hole in his stomach" and was prescribed 14 day closer pantoprazole which did not improve symptoms. The patient was admitted. Imaging showed CT abdomen pelvis without contrast shows 1. There is no acute process in the abdomen and pelvis. 2. Hepatic steatosis. 3. 6 mm calcified gallstone in the gallbladder neck. Liver and gallbladder ultrasound showed 1. Enlarged fatty infiltrated liver. 2. Gallstones and possible sludge seen in the gallbladder. The patient subsequently had cholecystectomy done. After surgery the patient doing well. He passed flatus. He able to ambulate without pain. He able to tolerate food. Today he will be discharged home. Advised the patient to follow up with primary care physician 1-2 weeks. Follow up with Dr. Lopez, surgeon per schedule. Activity as tolerated. Do not lift anything more than 10 lb for two weeks. Diet per home diet. Physical exam: HEENT: Normocephalic atraumatic pupils equal react to light and accommodation. Extraocular muscles intact, conjunctiva pink, oropharynx moist, no thrush, no exudate. Lymphatic: No lymphadenopathy Cardiovascular exam: S1, S2 was heard. No murmurs, rubs, gallops Lung: Clear on auscultation bilaterally, no wheeze, rale, rhonchi. GI: Abdominal soft, nondistended, nontenderness, positive bowel sounds. Extremity: No crepitus, cyanosis, edema. Pedal pulses present bilateral. Full range of motion. Skin: Normal turgor, no rash. Psych: Alert, oriented x3. Neurology: No focal deficits, cranial nerve II to XII grossly intact. This medical document was created using an electronic medical record system with [employer] direct computerized dictation system. Although this document has been carefully reviewed, there may still be some phonetic and typographical errors. These areas are purely typographical due to imperfections of the software programs, and do not reflect any compromise in the patient's medical care. Condition at Discharge: Stable Final Diagnosis/Problems List Acute cholecystitis status post cholecystectomy Acute intractable abdominal pain Cholelithiasis Acute gastritis Dyspepsia ? Peptic ulcer disease Discharge Disposition: Still a Patient Discharge Instruct/Medications Diet: Regular Activity: No Restrictions, As Tolerated Follow Up/Referral: pcp 1-2 weeks surgeon, Dr Lopez per schedule Discharge Statement: "Patient was advised to return to the ER or call 911 if any headaches, dizziness, shortness of breath, chest pain, abdominal pain, bleeding, fevers, or worsening of medical condition. Patient was counseled about treatment plan, medications, possible side effects, patientverbalized understanding. All questions were answered to the best of my ability. This discharge took greater then 30 minutes in planning, reviewing documentation, counseling the patient, and discussing with other team members." ASSESSMENT ASSESSMENT Assessment Acute cholecystitis Date of Service: May 04, 2024 Billing Provider: MARQUISE GARCIA MD Common Visit Codes: [id number] DISCH DAY >30min MARQUISE GARCIA MD May 04, 2024 14:53
== END 2024-05-04 16:10 | disposition home or self-care (01) | DRG 263 ==
LOC: ER 13:25 → EDBD 13:25 → OVERFLOW 17:43 → WEST WING 22:11
PROVIDERS: ADMIT Internal Medicine; ATTEND Internal Medicine
PROC: 0FT44ZZ Resection of Gallbladder, Percutaneous Endoscopic Approach (ICD-10-PCS; principal; 2024-05-03 12:32)
DX: K80.00 Calculus of gallbladder with acute cholecystitis without obstruction (principal); K76.0 Fatty (change of) liver, not elsewhere classified; F12.90 Cannabis use, unspecified, uncomplicated; K59.00 Constipation, unspecified; K29.00 Acute gastritis without bleeding; Z87.11 Personal history of peptic ulcer disease; Z83.3 Family history of diabetes mellitus; Z82.49 Family history of ischemic heart disease and other diseases of the circulatory system; Z79.1 Long term (current) use of non-steroidal anti-inflammatories (NSAID); Z79.899 Other long term (current) drug therapy
CPT/HCPCS: 36415; 74176; 76705; 80053; 83690; 85025; 85610; G0378; J1885; J2250; J2405; J2470; J2704